=== PATIENT | male | born 1940 | race Caucasian/White ===

== ENCOUNTER 2024-01-11 15:01 | Emergency (ER) | payer MEDICARE, OTHER ==
[~2024-01-11] VITALS: Ht 165.1 cm; Wt 81.7 kg
[2024-01-11 15:17] VITALS: BP 122/81
[2024-01-11] MEDS ORDERED: Naprosyn500 MG PO (16:15)
[2024-01-11] MEDS ORDERED: Ketorolac Tromethamine 30mg Vial IM ONE (16:15)
[2024-01-11 16:38] LABS: Source, Urine Clean Catch
[2024-01-11 17:03] LABS: Appearance, Urine Clear (Clear); Bilirubin, Urine Neg (Neg); Blood, Urine Neg (Neg); Color, Urine Yellow (P-Yellow); Glucose Qualitative, Urine Neg (Neg); Ketones, Urine Neg (Neg); Leukocyte Esterase, Urine Neg (Neg); Nitrite, Urine Neg (Neg); Protein, Urine Neg (Neg); Urobilinogen, Urine NORM (Normal); pH, Urine 6.5 (5.0-8.0)
== END 2024-01-11 17:09 | disposition home or self-care (01) ==
LOC: ER 15:01
PROVIDERS: Physician Assistant
DX: M48.061 Spinal stenosis, lumbar region without neurogenic claudication (principal)
CPT/HCPCS: 81003; 96372; 99283-25; J1885

== ENCOUNTER → 2024-01-19 | Outpatient (CLI) | payer MEDICARE, OTHER ==
[~2024-01-19] MED LIST: Crestor20 MG PO; GABA400 PO; Naprosyn500 MG PO
[2024-01-19 16:45] LABS: Source, Urine Clean Catch
[2024-01-19 16:57] LABS: Appearance, Urine Hazy (Clear); Bilirubin, Urine Neg (Neg); Blood, Urine Neg (Neg); Color, Urine Yellow (P-Yellow); Glucose Qualitative, Urine Neg (Neg); Ketones, Urine 1+ (Neg); Leukocyte Esterase, Urine 2+ (Neg); Nitrite, Urine Pos (Neg); Protein, Urine 1+ (Neg); Specific Gravity, Urine 1.025 (1.003-1.022); Urobilinogen, Urine NORM (Normal)
[2024-01-19 17:48] LABS: Bacteria Many /hpf; Mucus Mod (0-Heavy)
[2024-01-19 17:49] LABS: Calcium Oxalate Crystals Rare /hpf; Red Blood Cells, Urine Not Seen /hpf (0-2); Squamous Epithelial Cells Rare /hpf (Few)
== END | disposition home or self-care (01) ==
LOC: LAB SHORT 16:15 → LAB 16:15
PROVIDERS: Surgery
DX: C61 Malignant neoplasm of prostate (principal); Z87.442 Personal history of urinary calculi; Z87.440 Personal history of urinary (tract) infections
CPT/HCPCS: 81001; 87077; 87086; 87186

== ENCOUNTER 2024-06-19 15:55 | Emergency (ER) | payer MEDICARE, OTHER ==
[~2024-06-19] VITALS: Ht 165.1 cm; Wt 86.2 kg
[2024-06-19 16:43] LABS: BASOPHILS ABSOLUTE AUTO 0.01 K/mm3 (0.00-0.23); BASOPHILS PERCENT AUTO 0 % (0-2); EOSINOPHILS ABSOLUTE AUTO 0.21 K/mm3 (0.00-0.68); EOSINOPHILS PERCENT AUTO 3 % (0-6); Hematocrit 30.4 % (37.0-53.0); Hemoglobin 10.7 g/dL (13.5-17.5); IMMATURE GRAN ABSOLUTE AUTO 0.02 K/mm3 (0.00-0.10); IMMATURE GRAN PERCENT AUTO 0 % (0-1); LYMPHOCYTES ABSOLUTE AUTO 0.96 K/mm3 (0.84-5.20); LYMPHOCYTES PERCENT AUTO 14 % (21-46); MONOCYTES ABSOLUTE AUTO 0.64 K/mm3 (0.16-1.47); MONOCYTES PERCENT AUTO 9 % (4-13); Mean Corpuscular HGB 30.6 pg (26.0-34.0); Mean Corpuscular HGB Conc 35.2 g/dL (31.5-36.5); Mean Corpuscular Volume 87 fL (80-100); Mean Platelet Volume 10.5 fL (9.1-12.4); NEUTROPHILS PERCENT AUTO 73 % (41-73); Platelet Count 185 K/mm3 (150-400); RDW Coefficient Variation 12.7 % (11.7-14.2); White Blood Cell Count 6.84 K/mm3 (4.00-11.30)
[2024-06-19 16:54] LABS: Albumin, Blood 3.2 g/dL (3.4-5.0); Albumin/Globulin Ratio 0.9 (0.8-1.8); Bun/Creatinine Ratio 28.9 (12.0-20.0); Calcium, Blood 8.4 mg/dL (8.5-10.1); Creatinine, Blood 0.76 mg/dL (0.60-1.20); Globulin, Blood 3.7 g/dL (2.2-4.0); Magnesium, Blood 1.9 mg/dL (1.6-2.4); Potassium, Blood 3.8 mmol/L (3.5-5.5); Total Protein, Blood 6.9 g/dL (6.4-8.2)
[2024-06-19 17:42] VITALS: BP 154/75
[2024-06-19] MEDS ORDERED: Magnesium Hydroxide Conc 10 ML UDC PO ONE (18:20)
[2024-06-19] MEDS ORDERED: Sod Phosphate/Sod Biphosphate 132 ML BTL PR ONE (18:20)
== END 2024-06-19 22:10 | disposition left against medical advice (07) ==
LOC: ER 15:55
PROVIDERS: Physician Assistant
DX: K59.00 Constipation, unspecified (principal); M62.838 Other muscle spasm; Z79.899 Other long term (current) drug therapy
CPT/HCPCS: 74018; 80053; 83735; 85025; 85651; 99283-25; A9270

== ENCOUNTER → 2024-08-03 | Outpatient (CLI) | payer MEDICARE, OTHER | LOC: LAB 11:44 → LAB SHORT 11:44 | DX: N39.0 Urinary tract infection, site not specified (principal) | CPT/HCPCS: 87086; 87147 ==

== ENCOUNTER → 2024-08-23 | Outpatient (CLI) | payer MEDICARE, OTHER ==
[2024-08-23 13:05] LABS: BASOPHILS ABSOLUTE AUTO 0.02 K/mm3 (0.00-0.23); BASOPHILS PERCENT AUTO 0 % (0-2); EOSINOPHILS ABSOLUTE AUTO 0.21 K/mm3 (0.00-0.68); EOSINOPHILS PERCENT AUTO 4 % (0-6); Hematocrit 39.2 % (37.0-53.0); Hemoglobin 12.9 g/dL (13.5-17.5); IMMATURE GRAN ABSOLUTE AUTO 0.02 K/mm3 (0.00-0.10); IMMATURE GRAN PERCENT AUTO 0 % (0-1); LYMPHOCYTES ABSOLUTE AUTO 1.15 K/mm3 (0.84-5.20); LYMPHOCYTES PERCENT AUTO 24 % (21-46); MONOCYTES ABSOLUTE AUTO 0.28 K/mm3 (0.16-1.47); MONOCYTES PERCENT AUTO 6 % (4-13); Mean Corpuscular HGB 28.9 pg (26.0-34.0); Mean Corpuscular HGB Conc 32.9 g/dL (31.5-36.5); Mean Corpuscular Volume 88 fL (80-100); Mean Platelet Volume 9.9 fL (9.1-12.4); NEUTROPHILS PERCENT AUTO 66 % (41-73); Platelet Count 191 K/mm3 (150-400); RDW Coefficient Variation 13.9 % (11.7-14.2); RDW Standard Deviation 44.8 fL (35.1-46.3); Red Blood Cell Count 4.46 M/mm3 (4.30-5.90); White Blood Cell Count 4.88 K/mm3 (4.00-11.30)
[2024-08-23 13:18] LABS: Albumin, Blood 4.1 g/dL (3.4-5.0); Albumin/Globulin Ratio 1.1 (0.8-1.8); Bilirubin, Total 0.5 mg/dL (0.1-1.0); Bun/Creatinine Ratio 27.1 (12.0-20.0); Calcium, Blood 9.4 mg/dL (8.5-10.1); Creatinine, Blood 0.85 mg/dL (0.60-1.20); Globulin, Blood 3.9 g/dL (2.2-4.0); Potassium, Blood 3.8 mmol/L (3.5-5.5)
== END | disposition home or self-care (01) ==
LOC: LAB 13:00 → LAB SHORT 13:00
PROVIDERS: Chiropractor
DX: R10.9 Unspecified abdominal pain (principal)
CPT/HCPCS: 80053; 85025; 87086

== ENCOUNTER → 2024-09-27 | Outpatient (CLI) | payer MEDICARE, OTHER ==
[~2024-09-27] MED LIST changes: +Aspir 8181 MG PO; +C COMPLEX1000 M1 PO; +CYCLOBENZAPRINE5 MG PO; +FERROUS GLUCON240 MG PO; +FISH OIL 1,0001 EA10 PO; +Flomax0.4 MG PO; +HYDROCODONE-AC1 EA10 PO; +MULVITA PO; +OMEP20ER PO; +URITRAX47 GM; +URITRAX47 GM PO; +VIT D3-VIT K21 EACH PO; +ZINC15 PO
== END | disposition home or self-care (01) ==
LOC: LAB SHORT 16:28 → LAB 16:28
DX: N39.0 Urinary tract infection, site not specified (principal); R31.9 Hematuria, unspecified
CPT/HCPCS: 87086; 87147

== ENCOUNTER → 2024-11-06 | Outpatient (CLI) | payer MEDICARE, OTHER | LOC: LAB 17:31 → LAB SHORT 17:31 | DX: R35.0 Frequency of micturition (principal) | CPT/HCPCS: 87086; 87147 ==

== ENCOUNTER → 2024-12-10 | Outpatient (CLI) | payer MEDICARE, OTHER | LOC: LAB 16:58 → LAB SHORT 16:58 | DX: N39.0 Urinary tract infection, site not specified (principal) | CPT/HCPCS: 87086; 87147 ==

== ENCOUNTER → 2025-03-15 | Outpatient (CLI) | payer MEDICARE, OTHER ==
[2025-03-15 12:03] LABS: Bilirubin, Urine Neg (Neg); Color, Urine Yellow (P-Yellow); Glucose Qualitative, Urine Neg (Neg); Ketones, Urine Neg (Neg); Leukocyte Esterase, Urine 2+ (Neg); Protein, Urine 2+ (Neg); Specific Gravity, Urine 1.015 (1.003-1.022); Urobilinogen, Urine NORM (Normal)
[2025-03-15 12:15] LABS: White Blood Cells, Urine 25-50 /hpf (0-5)
== END ==
LOC: LAB 11:52 → LAB SHORT 11:52
PROVIDERS: Surgery
DX: C61 Malignant neoplasm of prostate (principal)
CPT/HCPCS: 81001; 87086